=== PATIENT | male | born 1975 | race American Indian/Alaskan Native ===

== ENCOUNTER 2019-12-21 06:52 | Emergency (ER) | payer MEDICARE ==
[2019-12-21] MEDS ORDERED: diphenhydrAMINE 50 MG/ML VIAL IV ONE (07:19)
[2019-12-21] MEDS ORDERED: KETOROLAC 30 MG/1 ML INJ IV ONE (07:19)
[2019-12-21] MEDS ORDERED: ONDANSETRON 4 MG/2 ML INJ IV ONE (07:19)
[2019-12-21] MEDS ORDERED: MORPHINE 2 MG/1 ML INJ IV ONE (07:19)
--- NOTE | 2019-12-21 07:28 | Emergency Department Report ---
ED General Adult HPI - General Chief complaint: Sickle Cell Crisis Stated complaint: SICKLE CELL PAIN Time Seen by Provider: 12/21/19 07:16 Source: patient Mode of arrival: Wheelchair Limitations: No Limitations - History of Present Illness Initial comments: 44-year-old male with a past medical history of sickle cell disease, previous cholecystectomy and right hip replacement secondary to avascular necrosis presents to the hospital complaining of generalized pain secondary to sickle cell crisis since 5 AM. Patient thinks the cold environment in his home might have triggered his crisis. Patient denies chest pain, fever, nausea, vomiting, abdominal pain, or cough. This is patient's first visit to this hospital. He states he recently moved here from [place] and does not currently have a vision care associate. He is unable to clarify which type of sickle cell that he has but states he has a crisis on average twice a year. He is not currently taking any pain medications. He does not have a port - Related Data Previous Rx's Medication Instructions Recorded Last Taken Type oxyCODONE /ACETAMINOPHEN [Percocet 1 tab PO Q6HR PRN #15 tablet 12/21/19 Unknown Rx 5/325] Allergies Allergy/AdvReac Type Severity Reaction Status Date / Time No Known Allergies Allergy Verified 12/21/19 07:03 ED Review of Systems ROS: Stated complaint: SICKLE CELL PAIN Other details as noted in HPI Comment: All other systems reviewed and negative ED Past Medical Hx - Past Medical History Previous Medical History?: Yes Hx Sickle Cell Disease: Yes - Surgical History Past Surgical History?: Yes Hx Cholecystectomy: Yes Additional Surgical History: right hip - Social History Smoking Status: Never Smoker Substance Use Type: None - Medications Home Medications: Home Medications Medication Instructions Recorded Confirmed Last Taken Type oxyCODONE /ACETAMINOPHEN [Percocet 1 tab PO Q6HR PRN #15 tablet 12/21/19 Unkno wn Rx 5/325] ED Physical Exam - General Limitations: No Limitations - Other Other exam information: General: No acute distress Head: Atraumatic Eyes: normal appearance, nonicteric sclera ENT: Moist mucous membranes Neck: Normal appearance, no midline tenderness Chest: Clear to auscultation bilaterally CV: Regular rate and rhythm Abdomen: Soft, normal bowel sounds, nontender, nondistended, no rebound or guarding Back: Normal inspection Extremity: Normal inspection, full range of motion Neuro: Alert O x 3, no facial asymmetry, speech clear, no gross motor sensory deficit Psych: Appropriate behavior Skin: No rash ED Course Vital Signs 12/21/19 12/21/19 12/21/19 06:59 07:50 08:00 Temperature 97.8 F Pulse Rate 85 Respiratory 16 Rate Blood Pressure 97/74 101/62 Blood Pressure [Left] O2 Sat by Pulse 95 82 L 93 Oximetry 12/21/19 12/21/19 12/21/19 08:15 08:45 09:00 Temperature Pulse Rate Respiratory Rate Blood Pressure 101/62 92/52 87/48 Blood Pressure [Left] O2 Sat by Pulse 94 94 93 Oximetry 12/21/19 12/21/19 12/21/19 09:15 09:30 09:45 Temperature Pulse Rate Respiratory Rate Blood Pressure 87/48 87/48 91/52 Blood Pressure [Left] O2 Sat by Pulse 95 82 L 93 Oximetry 12/21/19 12/21/19 12/21/19 10:00 10:15 10:30 Temperature Pulse Rate Respiratory Rate Blood Pressure 80/42 80/42 85/46 Blood Pressure [Left] O2 Sat by Pulse 93 93 Oximetry 12/21/19 12/21/19 12/21/19 10:45 11:00 11:15 Temperature Pulse Rate Respiratory Rate Blood Pressure 86/57 80/48 86/55 Blood Pressure [Left] O2 Sat by Pulse 95 95 97 Oximetry 12/21/19 12/21/19 12/21/19 11:30 11:45 12:00 Temperature Pulse Rate Respiratory Rate Blood Pressure 86/45 80/46 87/61 Blood Pressure [Left] O2 Sat by Pulse 96 95 95 Oximetry 12/21/19 12/21/19 12:15 12:21 Temperature Pulse Rate Respiratory Rate Blood Pressure 86/48 Blood Pressure 89/60 [Left] O2 Sat by Pulse 92 Oximetry ED Medical Decision Making - Lab Data Result diagrams: 12/21/19 07:22 Lab Results 12/21/19 Range/Units 07:22 WBC 15.6 H (4.5-11.0) K/mm3 RBC 2.80 L (3.65-5.03) M/mm3 Hgb 10.1 L (11.8-15.2) gm/dl Hct 29.8 L (35.5-45.6) % MCV 106 H (84-94) fl MCH 36 H (28-32) pg MCHC 34 (32-34) % RDW 18.6 H (13.2-15.2) % Plt Count 337 (140-440) K/mm3 Percent Retic 14.40 H (0.78-2.58) % Sickle Cell Screen Positive (Negtaive) - Medical Decision Making Patient symptoms improved after ED treatment of morphine and IV hydration. Blood pressure noted to be on the low side but patient states that it is his typical blood pressure measurement and he denies feeling lightheaded or dizzy. Will be discharged with additional pain medications for home for sickle cell crisis Critical Care Time: No Critical care attestation.: If time is entered above; I have spent that time in minutes in the direct care of this critically ill patient, excluding procedure time. ED Disposition Clinical Impression: Acute sickle cell crisis Disposition: - TO HOME OR SELFCARE Is pt being admited?: No Does the pt Need Aspirin: No Condition: Stable Instructions: Sickle Cell Crisis (ED) Additional Instructions: Take the medication as prescribed. Follow-up with your doctor or doctor/clinic provided. Return if symptoms worsen as indicated by your discharge instructions. Prescriptions: oxyCODONE /ACETAMINOPHEN [Percocet 5/325] 1 tab PO Q6HR PRN #15 tablet PRN Reason: Pain Referrals: OUT OF [facility] [Other] - 3-5 Days ROBERTO ALVARES DO [Staff Physician] - 3-5 Days (hematology ) Time of Disposition: 12:33
[2019-12-21] MEDS ORDERED: D5W/0.2% NACL 1,000 ML IV SCH (08:00)
[2019-12-21 08:17] LABS: Hematocrit 29.8 % (35.5-45.6); Hemoglobin 10.1 gm/dl (11.8-15.2); Mean Corpuscular HGB Conc 34 % (32-34); Mean Corpuscular Volume 106 fl (84-94); Red Cell Distribution Width 18.6 % (13.2-15.2)
[2019-12-21 08:26] LABS: Platelet Count 337 K/mm3 (140-440)
[2019-12-21] MEDS ORDERED: oxyCODONE /ACETAMINOPHEN 5-325MG TAB PO ONE (12:23)
[2019-12-21 13:21] VITALS: BP 95/61
[2019-12-21 17:49] LABS: Basophils % (Manual) 0 % (0.0-1.8); Total Cells Counted 100
[2019-12-21 17:50] LABS: Anisocytosis 1+; Macrocytosis 1+; Platelet Estimate Consistent w Auto; Sickle Cells Rare
== END 2019-12-21 13:20 | disposition home or self-care (01) ==
LOC: ED 06:52
DX: D57.819 Other sickle-cell disorders with crisis, unspecified (principal); Z90.49 Acquired absence of other specified parts of digestive tract
CPT/HCPCS: 36415; 85007; 85025; 85045; 85660; 96374; 96375; 99283; J1200; J1885; J2270; J2405